=== PATIENT | female | born 1975 | race Caucasian/White ===

== ENCOUNTER → 2018-04-06 11:18 | Outpatient (CLI) | payer OTHER, SELFPAY ==
--- NOTE | 2018-04-06 | XR_ITS ---
XR hip LT 2-3V w/pelvis HISTORY: ITS.REASON: LEFT HIP PAIN, NO KNOWN INJURY ORDERING PHYSICIAN: Johanna Sheikh PATIENT AGE: 43 years COMPARISON: None FINDINGS: No fracture or dislocation is evident. No significant degenerative change. No lytic or blastic change. Unremarkable soft tissues IMPRESSION: Negative hip
== END ==
PROVIDERS: PCP Nurse Practitioner Family; Visit Provider Nurse Practitioner Family
DX: M25.552 Pain in left hip (principal)
CPT/HCPCS: 73502

== ENCOUNTER 2020-03-26 16:57 | Emergency (ER) | payer SELFPAY ==
[2020-03-26 17:05] VITALS: BP 100/50; PULSE 69; RESP 18; O2SAT 100; BMI 24.3
[2020-03-26 17:12] VITALS: BMI 24.3
--- NOTE | 2020-03-26 17:15 | PC.NURSE ---
ELIZABETH MENDOZA states he does not want a CT or lab work on pt besides a COVID test and urine
[2020-03-26 17:22] LABS: Microscopic, Urine URINE MICROSCOPIC (MICROSCOPIC)
[2020-03-26 17:23] LABS: Appearance,Urine SL CLOUDY (Clear); Bilirubin,Urine Negative (Negative); Blood, Urine 2+ (Negative); Color,Urine YELLOW (Yellow); Glucose,Urine (UA) Negative (Negative); Ketones,Urine 1+ (Negative); Leukocyte Esterase,Urine Negative (Negative); Nitrate,Urine Negative (Negative); PH,Urine 8.5 (5.0-8.5); Protein,Urine Negative (Negative); Specific Gravity, Urine 1.015 (1.005-1.030); Urobilinogen,Urine 0.2 EU/dl (0.2)
--- NOTE | 2020-03-26 17:52 | HMH.EDNVD ---
ED Disposition Clinical Impression: Gastroenteritis Disposition: Home, Self-Care Condition on Discharge: Good Instructions: DI for Nausea -- Adult, DI for Nausea -- Child, DI for Diarrhea and Traveler's Diarrhea -- Adult, DI for Diarrhea and Traveler's Diarrhea -- Child Prescriptions: Promethazine HCl 50 mg PO TID 6 Days #20 tab Transmission Status: Sent to [facility] Ondansetron [Zofran 4mg ODT] 4 mg PO TID PRN 4 Days #15 tab.rapdis PRN Reason: Nausea Transmission Status: Sent to [facility] Referrals: Shirin Graves APRN [Primary Care Provider] - - Critical Care Critical Care Time: No Attestation: On 03/26/20, the high probability of a clinically significant, sudden or life threatening deterioration of the following system(s) required my full and direct attention, intervention and personal management. The time I documented below is in addition to time spent performing reported procedures but includes the following listed in this critical care notation. Medical Decision Making - Medical Records Medical records reviewed: Yes: I reviewed the patient's medical records. - Brandon Inquiry Pt receiving controlled substance: No Vital Signs: 03/26/20 17:05 Pulse Rate [Right Radial] 69 Respiratory Rate 18 Blood Pressure [Right Arm] 100/50 L Blood Pressure Mean [Right Arm] 66 Blood Pressure Source [Right Arm] Automatic Cuff Blood Pressure Position [Right Arm] Sitting 02 Sat by Pulse Oximetry 100 Oxygen Delivery Method Room Air - Lab Data Lab results reviewed: Yes: I reviewed the patient's lab results. Lab Results 03/26/20 17:14: Urine Color Yellow, Urine Appearance Sl cloudy, Urine pH 8.5, Ur Specific [place] 1.015, Urine Protein Negative, Urine Glucose (UA) Negative, Urine Ketones 1+, Urine Blood 2+, Urine Nitrate Negative, Urine Bilirubin Negative, Urine Urobilinogen 0.2, Ur Leukocyte Esterase Negative Orders (Tests/Meds): ED MEDICATIONS Generic Name Dose Route Start Last Admin Trade Name Freq PRN Reason Stop Dose Admin Sodium Chloride 1,000 mls @ 999 mls/hr 03/26/20 17:15 03/26/20 17:28 Sod Chlor 0.9% 1000ml Bag IV 03/26/20 18:15 999 mls/hr .[id number] BRITTON Administration Discontinued Medications Generic Name Dose Route Start Last Admin Trade Name Rockyq PRN Reason Stop Dose Admin Ondansetron HCl 4 mg 03/26/20 17:14 03/26/20 17:28 Zofran 4mg/2ml Vial IV 03/26/20 17:15 4 mg ONCE ONE Administration Promethazine HCl 25 mg 03/26/20 17:27 03/26/20 17:28 Phenergan 25mg/Ml 1ml Vial IV 03/26/20 17:28 25 mg ONCE ONE Administration Sodium Chloride 25 ml 03/26/20 17:27 03/26/20 17:29 Sod Chlor 0.9% 25ml Bag IV 03/26/20 17:28 25 ml ONCE ONE Administration ORDERS Category Date Time Status COVID [Coronavirus 19 Swab (OUTPT)] Routine Lab 03/26/20 17:25 Received UA [Urinalysis and Microscopic] Stat Lab 03/26/20 17:14 Results Nausea/Vomiting/Diarrhea HPI - General Chief complaint: Nausea/Vomiting/Diarrhea Stated complaint: vomitting dehydration sore throat Time Seen by Provider: 03/26/20 17:50 Mode of Arrival: Ambulatory Source of Information: Patient Limitations: No Limitations Description of Symptoms (Recalled from ER Triage Doc. by RN): Pt reports vomitting approximatly 60 times since 5 am today , pt reports 3 episodes of diarrhea and constant nausea. - History of Present Illness HPI Narrative: 45-year-old female presents emergency department acute onset of nausea vomiting diarrhea. She states since 5 AM this morning she has had 60 episodes of emesis. She feels very weak. She denies any abdominal pain she denies any injury she denies any other symptoms. - Related Data Previous Rx's Medication Instructions Recorded Ondansetron [Zofran 4mg ODT] 4 mg PO TID PRN 4 Days #15 03/26/20 tab.rapdis Promethazine HCl 50 mg PO TID 6 Days #20 tab 03/26/20 Allergies Allergy/AdvReac Type Severity Re
[2020-03-26 17:57] VITALS: BP 119/68; PULSE 71; O2SAT 100
[2020-03-26 18:16] LABS: Bacteria,Urine Trace /lpf; Squamous Epithelial Cell,Urine Occasional #/hpf (0-5); WBC,Urine Occasional #/hpf (0-3)
[2020-03-26 18:23] VITALS: BP 119/68; PULSE 71; RESP 18; TEMP 36.7; O2SAT 100
== END 2020-03-26 18:23 | disposition home or self-care (01) ==
PROVIDERS: Emergency Provider Family Medicine; PCP Nurse Practitioner
DX: K52.9 Noninfective gastroenteritis and colitis, unspecified (principal); E86.0 Dehydration
CPT/HCPCS: 81001; 96365; 96375; 99283; J2405; U0003

== ENCOUNTER → 2021-05-16 10:30 | Outpatient (CLI) | payer OTHER, SELFPAY ==
--- NOTE | 2021-05-16 10:45 | XR_ITS ---
PROCEDURE: XR CHEST PORTABLE CLINICAL HISTORY: COVID SCREENING COMPARISON: No exams were available for comparison FINDINGS: The cardiomediastinal silhouette and pulmonary vascularity are within normal limits. The lungs are clear without infiltrates, suspicious nodules, or pleural effusions. No acute bony abnormalities. IMPRESSION: No acute findings. Dictated by: Fazal Khalil MD 05/16/2021 11:06 Fazal Khalil MD in [place] 05/16/2021 11:06
== END ==
PROVIDERS: PCP Nurse Practitioner; Visit Provider Nurse Practitioner
DX: R05 Cough (principal)
CPT/HCPCS: 71045

== ENCOUNTER 2022-08-13 10:00 | Outpatient (RCR) | payer OTHER, SELFPAY | END 2022-09-01 11:13 | disposition home or self-care (01) | LOC: PT.CARL 10:00 | PROVIDERS: PCP Nurse Practitioner; Visit Provider Nurse Practitioner Family | DX: M25.521 Pain in right elbow (principal); M25.522 Pain in left elbow; M25.59 Pain in other specified joint | CPT/HCPCS: 97110; 97163; 97530 ==